=== PATIENT | male | born 1970 | race Caucasian/White ===

== ENCOUNTER 2025-07-06 20:54 | Observation (INO) ==
[2025-07-06] MEDS ORDERED: MoRPHine SULFATE 4 MG/ML 1 ML CARP\\VIAL IV PRN (21:20)
--- NOTE | 2025-07-06 21:32 | Emergency Department Note ---
History of Present Illness General Chief complaint: Kidney Stone Stated complaint: KIDNEY STONE Time Seen by Provider: 07/06/25 21:15 History of Present Illness Maximum Pain Intensity: 8 This is a 55-year-old male presenting to the emergency department for evaluation of left flank pain that began approximately 4 hours prior to arrival. The patient has had hematuria and 1 episode of vomiting. He states the pain is colicky. At worst the pain is 8/10. He has had kidney stones in the past and this feels similar. He has not had relief with [id number] medication. No fevers or chills. Home Medications Medication Instructions Recorded Confirmed Type No Known Home Medications 07/07/25 07/07/25 History Allergies Allergy/AdvReac Type Severity Reaction Status Date / Time No Known Allergies Allergy Unknown Verified 07/07/25 00:35 Past Med/Surg History Problem List (Updated 07/07/25 @ 02:27 by Delroy Cruz PA-C) Single pelvic kidney (Acute) Calculus of left ureter (Acute) No significant past surgical history Kidney stone (Acute) Social History Smoking Status: Never smoker Preferred Language: Pashto Feels Safe at Home: Yes Review of Systems A total of 10 systems reviewed and were otherwise negative Physical Exam Vital Signs Vital Signs - 24 hr 07/06/25 20:59 07/06/25 21:08 07/06/25 21:35 Temperature 36.6 C Temperature Source Temporal Artery Scan Pulse Rate 81 70 79 Pulse Rate from SpO2 Sensor Pulse Rhythm Regular Regular Pulse Strength Normal Respiratory Rate 18 16 Respiratory Effort / Characteristics Non-Labored Spontaneous Respiratory Depth Normal Respiratory Pattern Regular Blood Pressure 157/85 H Blood Pressure Mean 109 Blood Pressure Position Sitting Pulse Oximetry 98 95 Oxygen Delivery Method Room Air Room Air Sepsis Recent Fever Within 48 Hours No Sepsis New/Unexplained Change in Mental Status N/A Sepsis Action Taken by Nursing No Action Required 07/06/25 21:42 07/06/25 22:33 07/06/25 22:45 Temperature Temperature Source Pulse Rate 80 75 69 Pulse Rate from SpO2 Sensor 79 73 Pulse Rhythm Pulse Strength Respiratory Rate 20 22 17 Respiratory Effort / Characteristics Respiratory Depth Respiratory Pattern Blood Pressure 133/75 124/78 Blood Pressure Mean 94 93 Blood Pressure Position Pulse Oximetry 97 96 Oxygen Delivery Method Sepsis Recent Fever Within 48 Hours Sepsis New/Unexplained Change in Mental Status Sepsis Action Taken by Nursing 07/06/25 22:54 07/06/25 22:57 07/06/25 23:02 Temperature Temperature Source Pulse Rate 62 67 Pulse Rate from SpO2 Sensor 61 64 Pulse Rhythm Pulse Strength Respiratory Rate 17 17 Respiratory Effort / Characteristics Respiratory Depth Respiratory Pattern Blood Pressure 124/78 Blood Pressure Mean 94 Blood Pressure Position Pulse Oximetry 95 95 Oxygen Delivery Method Sepsis Recent Fever Within 48 Hours Sepsis New/Unexplained Change in Mental Status Sepsis Action Taken by Nursing 07/06/25 23:03 07/06/25 23:21 07/06/25 23:30 Temperature Temperature Source Pulse Rate 74 76 66 Pulse Rate from SpO2 Sensor 76 77 67 Pulse Rhythm Pulse Strength Respiratory Rate 27 H 17 18 Respiratory Effort / Characteristics Respiratory Depth Respiratory Pattern Blood Pressure Blood Pressure Mean Blood Pressure Position Pulse Oximetry 96 96 96 Oxygen Delivery Method Sepsis Recent Fever Within 48 Hours Sepsis New/Unexplained Change in Mental Status Sepsis Action Taken by Nursing 07/06/25 23:39 07/07/25 00:00 07/07/25 00:15 Temperature Temperature Source Pulse Rate 68 74 Pulse Rate from SpO2 Sensor 67 Pulse Rhythm Pulse Strength Respiratory Rate 19 14 Respiratory Effort / Characteristics Respiratory Depth Respiratory Pattern Blood Pressure 140/80 Blood Pressure Mean 97 Blood Pressure Position Pulse Oximetry 96 Oxygen Delivery Method Sepsis Recent Fever Within 48 Hours Sepsis New/Unexplained Change in Mental Status Sepsis Action Taken by Nursing 07/07/25 00:27 07/07/25 00:30 Temperature Temperature Source Pulse Rate 64 66 Pulse Rate from SpO2 Sensor Pulse Rhythm Pulse Strength Respiratory Rate 15 15 Respiratory Effort / Characteristics Respiratory Depth Respiratory Pattern Blood Pressure Blood Pressure Mean Blood Pressure Position Pulse Oximetry Oxygen Delivery Method Sepsis Recent Fever Within 48 Hours Sepsis New/Unexplained Change in Mental Status Sepsis Action Taken by Nursing VITALS: Vitals are noted on the nurse's note and reviewed by myself. Vital signs stable. GENERAL: Well-developed, well-nourished, white male, who is in no acute distress and resting comfortably. Patient is cooperative with the examination. HEAD: Normocephalic atraumatic. HEART: Regular rate and rhythm without murmurs gallops or rubs. LUNGS: Clear to auscultation bilaterally without wheezes, rales or rhonchi. No retractions or accessory muscle use. ABDOMEN: Positive normal bowel sounds x 4. Soft, nontender, without masses or organomegaly. No guarding or rebound tenderness. MUSCULOSKELETAL: No muscle atrophy, erythema, or edema noted. Full range of motion in all extremities. No tenderness to palpation. NEURO: Patient was alert and oriented to person place and time. CN II through XII grossly intact. No focal neurological deficits. GCS 15. SKIN: The skin was without rashes, erythema, edema, or bruising. Capillary refill less than 2 seconds. Course Administered Medications Sodium Chloride (Nss) 1,000 mls @ 100 mls/hr IV .Q10H ANGIE Stop: 07/07/25 20:59 Last Admin: 07/07/25 02:00 Dose: 100 mls/hr Documented By: JAVED Discontinued Medications Sodium Chloride (Nss) 1,000 mls @ 999 mls/hr IV .Q1H1M ONE Stop: 07/06/25 22:10 Last Infusion: 07/06/25 22:52 Dose: Infused Documented By: Admin: 07/06/25 21:38 Dose: 999 mls/hr Documented By: LUKE Ketorolac Tromethamine (Ketorolac Tromethamine 15 Mg/Ml Vial) 15 mg IV NOW STA Stop: 07/06/25 21:10 Last Admin: 07/06/25 21:38 Dose: 15 mg Documented By: LUKE Ondansetron HCl (Ondansetron Inj 2 Mg/Ml 2 Ml Vial) 4 mg IV NOW STA Stop: 07/06/25 21:11 Last Admin: 07/06/25 21:39 Dose: 4 mg Documented By: LUKE Medical Decision Making Differential Diagnosis Differential diagnosis: Etiologies such as shingles, pyelonephritis/UTI, renal colic, appendicitis, diverticulitis, mesenteric ischemia, torsion, aortic pathology, infections, inflammatory bowel disease, bowel obstruction, PUD, biliary pathology, as well as others were entertained. Laboratory Data 07/06/25 21:30 07/06/25 21:30 Lab Results 07/06/25 07/06/25 07/06/25 Range/Units 21:30 21:36 22:29 WBC 12.54 H (4.8-10.8) K/ul RBC 4.86 (4.70-6.10) M/uL Hgb 14.9 (14.0-18.0) g/dl POC Hgb 15.0 (14.0-18.0) g/dl Hct 42.5 (42.0-52.0) % POC Hct 44 (42-52) % MCV 87.4 (80.0-100.0) fL MCH 30.7 (25.0-34.0) pg MCHC 35.1 (32.0-36.0) g/dL RDW Std Deviation 39.2 (36.4-46.3) fL RDW Coeff of Olga 12.3 (11.5-14.5) % Plt Count 217 (130-400) K/uL MPV 9.5 (9.4-12.4) fL Immature Gran % (Auto) 0.5 % Neut % (Auto) 85.6 % Lymph % (Auto) 7.7 % [place] % (Auto) 5.4 % Eos % (Auto) 0.4 % Baso % (Auto) 0.4 % Neut # (Auto) 10.74 H (1.40-6.50) K/uL Lymph # (Auto) 0.96 L (1.20-3.40) K/uL [place] # (Auto) 0.68 H (0.11-0.59) K/uL Eos # (Auto) 0.05 (0.00-0.50) K/uL Baso # (Auto) 0.05 (0.00-0.20) K/uL Immature Gran # (Auto) 0.06 (0.01-0.20) K/uL POC Sodium 138 (135-144) mmol/L Sodium 136 (136-145) mmol/L POC Potassium 4.2 (3.3-5.0) mmol/L Potassium 4.1 (3.5-5.1) mmol/L POC Chloride 102 (101-112) mmol/L Chloride 102 (98-107) mmol/L Carbon Dioxide 27 (21-32) mmol/L POC Total CO2 24 (24-31) mmol/L Anion Gap 7 (3-11) POC Anion Gap 17.0 (16-25) mmol/L POC BUN 18 (7-18) mg/dl BUN 19 (6-23) mg/dl Creatinine 1.33 (0.6-1.4) mg/dl POC Creatinine 1.3 (0.6-1.3) mg/dl Est Cr Clr Drug Dosing 62.8 ml/min eGFR 63.12 BUN/Creatinine Ratio 14.3 (10-20) Glucose 187 H (70-99(Fasting)) mg/dl POC Glucose (other) 187 H (70-99) mg/dl Calcium 9.6 (8.6-10.3) mg/dl POC Ioniz Calcium Reny 1.24 (1.12-1.32) mmol/l Total Bilirubin 0.6 (0.2-1.0) mg/dl AST 16 (13-39) U/L ALT 19 (7-52) U/L Alkaline Phosphatase 55 (34-104) U/L Total Protein 7.5 (6.0-8.3) gm/dl Albumin 4.2 (3.4-5.0) gm/dl Globulin 3.3 (2.5-4.0) gm/dl Albumin/Globulin Ratio 1.3 (0.9-2) Lipase 27 (11-82) U/L Urine Color Yellow Urine Appearance Clear (Clear) Urine pH 6.0 (4.5-7.5) Ur Specific [place] 1.031 H (1.000-1.030) Urine Protein 1+ H (Negative) Urine Glucose (UA) Trace H (Negative) Urine Ketones Negative (Negative) Urine Blood 3+ H (Negative) Urine Nitrite Negative (Negative) Urine Bilirubin Negative (Negative) Urine Urobilinogen Negative (Negative) Ur Leukocyte Esterase 1+ H (Negative) Urine WBC (Auto) 11-20 H (0-5) /hpf Urine RBC (Auto) >20 H (0-2) /hpf U Hyaline Cast (Auto) 0-2 (0-2) /lpf U Epithel Cells (Auto) 0-2 (0-2) /hpf Urine Bacteria (Auto) None Seen (None Seen) Urine Comment Imaging Data Radiologist's Impression: Abdomen/Pelvis CT 07/06/25 21:11 Exam(s): CT ABDOMEN + PELVIS With Contrast IV Amt: 93 ml optiray 320 EXAM: CT Abdomen and Pelvis With Intravenous Contrast CLINICAL HISTORY: Reason for exam: left flank pain. TECHNIQUE: Axial computed tomography images of the abdomen and pelvis with intravenous contrast. CTDI is 18 mGy and DLP is 834 mGy-cm. Automated exposure control was utilized for the study. A dose lowering technique was utilized adhering to the principles of ALARA. CONTRAST: Patient received 93 ml optiray 320 of IV contrast COMPARISON: 04/11/2016 FINDINGS: Lung bases: No mass. No consolidation. No pleural effusion ABDOMEN: Liver: Scattered left hepatic lobe low-density lesions, statistically likely represent cysts. Hepatomegaly. No mass. Gallbladder and bile ducts: Unremarkable. No calcified stones. No ductal dilation. Pancreas: Unremarkable. No mass. No ductal dilation. Spleen: Unremarkable. No splenomegaly. Adrenals: Unremarkable. No mass. Kidneys and ureters: The left kidney is again seen within the left hemipelvis, demonstrating a 1.7 cm obstructing calculus at the left UPJ with resultant moderately severe left hydronephrosis and perinephric inflammatory fat stranding/edema fluid.. A 1.6 cm right renal cortical cyst. Few tiny right renal calculi are seen. No right hydronephrosis. Stomach and bowel: Unremarkable stomach and small bowel. Nonspecific mild circumferential wall thickening of the distal descending colon/hepatic flexure, this could be related to incomplete distention although cannot exclude colitis (series 300 image 51). No obstruction. No mucosal thickening. PELVIS: Appendix: Normal-appearing appendix. Bladder: Rightward mildly displaced moderately distended urinary bladder.. No mass. Reproductive: Borderline/mildly large prostate gland. ABDOMEN and PELVIS: Intraperitoneal space: No free air. No significant fluid collection. Bones/joints: No acute fracture. No dislocation. At L4-L5 level mild/moderate degenerative disc disease changes seen. Soft tissues: Unremarkable. Vasculature: Mild atheromatous calcification. No abdominal aortic aneurysm. Lymph nodes: No significantly enlarged lymph nodes. IMPRESSION: A left pelvic kidney is seen with a 1.7 cm obstructing calculus at the UPJ, resulting in moderately severe left hydronephrosis and perinephric inflammatory fat stranding/edema fluid. A 1.6 cm right renal cortical cyst. Few tiny right renal calculi are seen. No right hydronephrosis. Nonspecific mild circumferential wall thickening of the distal descending colon/hepatic flexure, could be related to incomplete distention although cannot exclude colitis. Clinical correlation recommended. . Electronically signed by: Shawn Rose MD, CARLIE 07/06/25 23:52 PM MDM Narrative Physical exam and history were performed. Nursing notes, EMR, and Medication List were personally reviewed. No social concerns were identified as barriers to patients care. History was provided by the Patient. Patient appears to have flank pain bringing him to the ER. He does have a history of kidney stones. IV access was established and labs were obtained. He was hydrated normal saline given IV Toradol, IV Zofran, and IV morphine. Patient was sent to CT scan for imaging of his abdomen and pelvis. Patient's blood work is as above and was reviewed. He does not have a significant elevated white blood cell count, gross anemia, bandemia, or significant electrolyte imbalance. Transaminases are not diagnostic. Urine without distinct evidence of infection. CT scan was performed and independently reviewed by myself and radiology. He does seem to have a left pelvic kidney, which does have a quite sizable ureteral calculi. This seems to measure 1.7 cm and is causing obstructive findings. Escalation of care was considered, and felt to be necessary. Case was discussed with both my attending physician, as well as on-call urology. Patient was additionally discussed with the on-call [facility] team, who will evaluate the patient here in the ER. Please see their dictation for further patient course, plan, disposition. The chart was completed utilizing [employer] Speech Voice Recognition Software. Grammatical errors, random word insertions, pronoun errors, and incomplete sentences are an occasional consequence of this system due to software limitations, ambient noise, and hardware issues. Any formal questions or concerns about the content, text, or information contained within the body of this dictation should be directly addressed to the provider for clarification. Impression & Plan Calculus of left ureter, Single pelvic kidney Discharge Plan Visit Data Chief Complaint: Kidney Stone Stated Complaint: KIDNEY STONE ED Provider: Cheikh Hector ED Midlevel Provider: Delroy Cruz Discharge Problem: Calculus of left ureter, Single pelvic kidney Patient Disposition: Admitted As Inpatient Condition: Fair Discharge Instructions Interventions: ED Discharge Assessment Last Done: 07/07/25 01:43
[2025-07-06] MEDS: SODIUM CHLORIDE 0.9% 1,000 ML IV ONE (21:38)
[2025-07-06] MEDS: KETOROLAC TROMETHAMINE 15 MG/ML VIAL IV STA (21:38)
[2025-07-06] MEDS: ONDANSETRON INJ 2 MG/ML 2 ML VIAL IV STA (21:39)
[2025-07-06 21:46] LABS: Hematocrit (blood only) 42.5 % (42.0-52.0); Hemoglobin 14.9 g/dl (14.0-18.0); Immature Granulocytes # (auto) 0.06 K/uL (0.01-0.20); Immature Granulocytes % (auto) 0.5 %; Mean Corpuscular Hemoglobin 30.7 pg (25.0-34.0); Mean Corpuscular Volume 87.4 fL (80.0-100.0); Platelet Count 217 K/uL (130-400); RDW Standard Deviation 39.2 fL (36.4-46.3); Red Blood Count 4.86 M/uL (4.70-6.10); White Blood Count 12.54 K/ul (4.8-10.8)
[2025-07-06 22:00] LABS: Alanine Aminotransferase 19.0 U/L (7-52); Albumin Globulin Ratio 1.3 (0.9-2); Alkaline Phosphatase 55.0 U/L (34-104); Anion Gap 7.0 (3-11); Bilirubin,Total 0.6 mg/dl (0.2-1.0); Blood Urea Nitrogen 19.0 mg/dl (6-23); Calcium 9.6 mg/dl (8.6-10.3); Carbon Dioxide 27.0 mmol/L (21-32); Chloride 102.0 mmol/L (98-107); Creatinine Clr Calc Pharmacy 62.8 ml/min; Globulin 3.3 gm/dl (2.5-4.0); Glucose 187.0 mg/dl (70-99(Fasting)); Lipase 27.0 U/L (11-82); Potassium 4.1 mmol/L (3.5-5.1); Sodium 136.0 mmol/L (136-145); Total Protein 7.5 gm/dl (6.0-8.3)
[2025-07-06 22:50] LABS: Appearance Urine Clear (Clear); Bacteria Urine Automated None Seen (None Seen); Cast Urine Automated 0-2 /lpf (0-2); Epithelial Cell Urine Auto 0-2 /hpf (0-2); Glucose Urine UA Trace (Negative); RBC Urine Automated >20 /hpf (0-2)
--- NOTE | 2025-07-06 23:53 | CT Scan Report ---
Exam(s): CT ABDOMEN + PELVIS With Contrast IV Amt: 93 ml optiray 320 EXAM: CT Abdomen and Pelvis With Intravenous Contrast CLINICAL HISTORY: Reason for exam: left flank pain. TECHNIQUE: Axial computed tomography images of the abdomen and pelvis with intravenous contrast. CTDI is 18 mGy and DLP is 834 mGy-cm. Automated exposure control was utilized for the study. A dose lowering technique was utilized adhering to the principles of ALARA. CONTRAST: Patient received 93 ml optiray 320 of IV contrast COMPARISON: 04/11/2016 FINDINGS: Lung bases: No mass. No consolidation. No pleural effusion ABDOMEN: Liver: Scattered left hepatic lobe low-density lesions, statistically likely represent cysts. Hepatomegaly. No mass. Gallbladder and bile ducts: Unremarkable. No calcified stones. No ductal dilation. Pancreas: Unremarkable. No mass. No ductal dilation. Spleen: Unremarkable. No splenomegaly. Adrenals: Unremarkable. No mass. Kidneys and ureters: The left kidney is again seen within the left hemipelvis, demonstrating a 1.7 cm obstructing calculus at the left UPJ with resultant moderately severe left hydronephrosis and perinephric inflammatory fat stranding/edema fluid.. A 1.6 cm right renal cortical cyst. Few tiny right renal calculi are seen. No right hydronephrosis. Stomach and bowel: Unremarkable stomach and small bowel. Nonspecific mild circumferential wall thickening of the distal descending colon/hepatic flexure, this could be related to incomplete distention although cannot exclude colitis (series 300 image 51). No obstruction. No mucosal thickening. PELVIS: Appendix: Normal-appearing appendix. Bladder: Rightward mildly displaced moderately distended urinary bladder.. No mass. Reproductive: Borderline/mildly large prostate gland. ABDOMEN and PELVIS: Intraperitoneal space: No free air. No significant fluid collection. Bones/joints: No acute fracture. No dislocation. At L4-L5 level mild/moderate degenerative disc disease changes seen. Soft tissues: Unremarkable. Vasculature: Mild atheromatous calcification. No abdominal aortic aneurysm. Lymph nodes: No significantly enlarged lymph nodes. IMPRESSION: A left pelvic kidney is seen with a 1.7 cm obstructing calculus at the UPJ, resulting in moderately severe left hydronephrosis and perinephric inflammatory fat stranding/edema fluid. A 1.6 cm right renal cortical cyst. Few tiny right renal calculi are seen. No right hydronephrosis. Nonspecific mild circumferential wall thickening of the distal descending colon/hepatic flexure, could be related to incomplete distention although cannot exclude colitis. Clinical correlation recommended. . Electronically signed by: Shawn Rose MD, CARLIE 07/06/25 23:52 PM
--- NOTE | 2025-07-07 00:18 | Urology Consultation ---
Date of Consultation July 07, 2025 Assessment & Plan (1) Kidney stone: I discussed with the treating clinician emergency department the patient is being admitted on the hospitalist service. From a urologic perspective we recommend the following: Provide analgesics only provide antiemetics Provide IV fluid for hydration Implement n.p.o. status I discussed with the patient that with the size of his kidney stone it would likely not pass on its own and he may require surgical or cystoscopic i ntervention. We therefore keep the patient n.p.o. and he will be reevaluated by her dayshift team on 07/07/2025 and a determination will be made about the best course of action At the time my interview the patient was noted to be nontoxic-appearingas she was normotensive without tachycardia or fever and did not exhibit acute kidney injury Additional recommendations are forthcoming based on his clinical course as it unfolds History of Present Illness Reason for Consultation: Nephrolithiasis History of Present Illness This is a 55-year-old male who presented to the emergency department secondary to left-sided flank/left-sided abdominal pain. Patient states that the pain began the evening of 07/06/2025. He denies any dysuria but did have an episode of hematuria as well. He had 1 episode of nausea and vomiting with the pain. He denies any fevers, shakes, or chills. He notes that he has had kidney stones in the past but he has been able to pass a kidney stone on his own. Since arrival to the hospital patient has had labs and imaging which independent reviewed. CT scan abdomen pelvis showed the patient was noted to have a left kidney located primarily in the left hemipelvis. He was noted to have a 1.7 cm obstructing kidney stone at the left ureteropelvic junction resulting in severe left hydronephrosis. Nephricinflammatory/fat stranding. Labs included CBC white blood cell count was elevated 12.5. Hemoglobin and hematocrit as well as a platelet count were normal. Chemistry profile showed sodium and potassium as well as the BUN and creatinine were normal. The urinalysis was negative for nitrites but he did have 1+ leukocyte esterase and 11-20 white blood cells per high-power field. There is no bacteria in the study. At the time of my interview he was resting comfortably in bed and is in no distress. Allergies Allergy/AdvReac Type Severity Reaction Status Date / Time No Known Allergies Allergy Unknown Unverified 05/05/16 07:54 Home Medications Medication Instructions Recorded Confirmed Type OMEPRAZOLE (PRILOSEC) 20 mg PO DAILY ##0 02/15/13 History Patient History Social History Smoking Status: Never smoker Preferred Language: Bhutanese Feels Safe at Home: Yes Review of Systems Review of Systems: All systems reviewed & are unremarkable except as noted in HPI & below Physical Exam Constitutional: WD/WN, vitals as above Eyes: no conjunctival abnormality ENMT: Ears: no hearing impairment and no external ear abnormality Mouth: no oropharynx abnormality Neck: trachea midline Respiratory: normal respiratory effort; no respiratory distress and no labored breathing Cardiovascular: Rate/Rhythm: regular rate and regular rhythm Gastrointestinal (Abdomen): Soft and nontender to palpation Musculoskeletal: No calf tenderness Skin: no rashes Neurologic: moves all extremities Psychiatric: A+Ox3, euthymic affect Genitourinary: No CVA tenderness with percussion bilaterally at the time of my exam Results & Data Vital Signs (Past 12 Hours) Vital Signs Temp Pulse Resp BP Pulse Ox O2 Del Method 07/06/25 22:54 62 17 95 07/06/25 22:45 69 17 07/06/25 22:33 75 22 124/78 96 07/06/25 21:42 80 20 133/75 97 07/06/25 21:35 79 07/06/25 21:08 70 16 95 Room Air 07/06/25 20:59 36.6 C 81 18 157/85 H 98 Room Air PG Care Time/CCT Total # of Minutes Spent Total Time Spent with Patient: Total time spent is greater than 50% in coordination of care (as documented) at patient's floor/unit and/or counseling patient: Coding Level of Care Code 62203 IN/OBS CONSULT LVL 5,80M Diagnoses Kidney stone N20.0
--- NOTE | 2025-07-07 00:53 | History & Physical Report ---
Date of Service July 07, 2025 Assessment & Plan (1) Calculus of left ureter: Plan: Assessment and plan below following discussion of case with ED provider and reviewing patient history/pertinent normal/abnormal diagnostic test results. Obstructive uropathy secondary to kidney stone No sepsis for now Incidental finding of right kidney cyst on imaging Hyperglycemia rule out DM Admit to MedSurg Analgesia Strain urine Urology consult RE obstructive uropathy from kidney stone (Patient already evaluated in the ER by provider. N.p.o. status recommended in anticipation of procedure in a.m.) Check hemoglobin A1c DVT prophylaxis. SCDs Re: Gross hematuria Full code Text document was generated using [employer] voice recognition software. It may contain grammatical or spelling errors. Kindly contact undersigned for clarification of any documentation item in question. History of Present Illness Chief Complaint: Kidney stone pain Primary Care Provider: NO PCP History obtained from patient and records. Medical history significant for urolithiasis. Patient experienced achy left-sided flank pain symptoms last night reminiscent of kidney stone attack. Hematuria associated with emesis. Denies chest pain, SOB, fever or chills. 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 Allergies Allergy/AdvReac Type Severity Reaction Status Date / Time No Known Allergies Allergy Unknown Verified 07/07/25 00:35 Home Medications Medication Instructions Recorded Confirmed Type No Known Home Medications 07/07/25 07/07/25 History Past Med/Surg History Problem List (Updated 07/07/25 @ 02:27 by Delroy Cruz PA-C) Single pelvic kidney (Acute) Calculus of left ureter (Acute) No significant past surgical history Kidney stone (Acute) Social History Smoking Status: Never smoker Second Hand Exposure: No; Do You Dip or Chew Tobacco: No; Tobacco Cessation Education Requested by Patient: No Hx Alcohol Use: Yes Alcohol type: beer, wine and hard liquor Hx Substance Use: No Preferred Language: Welsh Communication Ability: Effective Ampoule Examiner Required: No Beliefs That Will Affect Care: None Current Living Situation: Alone Other Information That Helps Us Care for You: No Feels Safe at Home: Yes Safety Concerns: Feels Safe At This Time Assistive Devices: None Review of Systems Review of Systems: As per HPI, all other systems reviewed and negative Physical Exam Physical Exam: GENERAL: Comfortable, pleasant, no respiratory distress SKIN: Normal color, warm HEENT: [place] palpebral conjunctivae, no ptosis, moist buccal mucosa NECK : Supple, no tenderness CHEST : CTA, no tenderness HEART : RRR, no obvious murmurs ABDOMEN:no distention, minimal left leg tenderness EXTREMITIES : No LE swelling/tenderness, palpable pulses, no other conspicuous deformities noted NEUROLOGIC : Coherent, no facial asymmetry, no other gross focality Results & Data Results & Data Vital Signs (Past 12 Hours) Vital Signs Temp Pulse Resp BP Pulse Ox O2 Del Method 07/06/25 22:54 62 17 95 07/06/25 22:45 69 17 07/06/25 22:33 75 22 124/78 96 07/06/25 21:42 80 20 133/75 97 07/06/25 21:35 79 07/06/25 21:08 70 16 95 Room Air 07/06/25 20:59 36.6 C 81 18 157/85 H 98 Room Air Laboratory Results Laboratory Results WBC 12.54 K/ul (4.8-10.8) H 07/06/25 21:30 RBC 4.86 M/uL (4.70-6.10) 07/06/25 21:30 Hgb 14.9 g/dl (14.0-18.0) 07/06/25 21:30 POC Hgb 15.0 g/dl (14.0-18.0) 07/06/25 21:36 Hct 42.5 % (42.0-52.0) 07/06/25 21: POC Hct 44 % (42-52) 07/06/25 21:36 MCV 87.4 fL (80.0-100.0) 07/06/25 21:30 MCH 30.7 pg (25.0-34.0) 07/06/25 21: MCHC 35.1 g/dL (32.0-36.0) 07/06/25 21: RDW Std Deviation 39.2 fL (36.4-46.3) 07/06/25 21: RDW Coeff of Olga 12.3 % (11.5-14.5) 07/06/25 21: Plt Count 217 K/uL (130-400) 07/06/25 21:30 MPV 9.5 fL (9.4-12.4) 07/06/25 21:30 Immature Gran % (Auto) 0.5 % 07/06/25 21:30 Neut % (Auto) 85.6 % 07/06/25 21:30 Lymph % (Auto) 7.7 % 07/06/25 21:30 [place] % (Auto) 5.4 % 07/06/25 21:30 Eos % (Auto) 0.4 % 07/06/25 21:30 Baso % (Auto) 0.4 % 07/06/25 21:30 Neut # (Auto) 10.74 K/uL (1.40-6.50) H 07/06/25 21: Lymph # (Auto) 0.96 K/uL (1.20-3.40) L 07/06/25 21:30 Stanton # (Auto) 0.68 K/uL (0.11-0.59) H 07/06/25 21:30 Eos # (Auto) 0.05 K/uL (0.00-0.50) 07/06/25 21:30 Baso # (Auto) 0.05 K/uL (0.00-0.20) 07/06/25 21: Immature Gran # (Auto) 0.06 K/uL (0.01-0.20) 07/06/25 21:30 POC Sodium 138 mmol/L (135-144) 07/06/25 21: Sodium 136 mmol/L (136-145) 07/06/25 21:30 POC Potassium 4.2 mmol/L (3.3-5.0) 07/06/25 21: Potassium 4.1 mmol/L (3.5-5.1) 07/06/25 21:30 POC Chloride 102 mmol/L (101-112) 07/06/25 21: Chloride 102 mmol/L (98-107) 07/06/25 21: Carbon Dioxide 27 mmol/L (21-32) 07/06/25 21:30 POC Total CO2 24 mmol/L (24-31) 07/06/25 21: Anion Gap 7 (3-11) 07/06/25 21:30 POC Anion Gap 17.0 mmol/L (16-25) 07/06/25 21:36 POC BUN 18 mg/dl (7-18) 07/06/25 21:36 BUN 19 mg/dl (6-23) 07/06/25: Creatinine 1.33 mg/dl (0.6-1.4) 07/06/25 21: POC Creatinine 1.3 mg/dl (0.6-1.3) 07/06/25 21: Est Cr Clr Drug Dosing 62.8 ml/min 07/06/25 21: eGFR 63.12 07/06/25 21: BUN/Creatinine Ratio 14.3 (10-20) 07/06/25 21: Glucose 187 mg/dl (70-99(Fasting)) H 07/06/25: POC Glucose (other) 187 mg/dl (70-99) H 07/06/25: Calcium 9.6 mg/dl (8.6-10.3) 07/06/25: POC Ioniz Calcium Reny 1.24 mmol/l (1.12-1.32) 07/06/25: Total Bilirubin 0.6 mg/dl (0.2-1.0) 07/06/25 21: AST 16 U/L (13-39) 07/06/25: ALT 19 U/L (7-52) 07/06/25: Alkaline Phosphatase 55 U/L (34-104) 07/06/25: Total Protein 7.5 gm/dl (6.0-8.3) 07/06/25: Albumin 4.2 gm/dl (3.4-5.0) 07/06/25: Globulin 3.3 gm/dl (2.5-4.0) 07/06/25: Albumin/Globulin Ratio 1.3 (0.9-2) 07/06/25: Lipase 27 U/L (11-82) 07/06/25 21: Urine Color Yellow 07/06/25 22: Urine Appearance Clear (Clear) 07/06/25 22: Urine pH 6.0 (4.5-7.5) 07/06/25 22: Ur Specific [place] 1.031 (1.000-1.030) H 07/06/25: Urine Protein 1+ (Negative) H 07/06/25: Urine Glucose (UA) Trace (Negative) H 07/06/25: Urine Ketones Negative (Negative) 07/06/25: Urine Blood 3+ (Negative) H 07/06/25: Urine Nitrite Negative (Negative) 07/06/25: Urine Bilirubin Negative (Negative) 07/06/25: Urine Urobilinogen Negative (Negative) 07/06/25: Ur Leukocyte Esterase 1+ (Negative) H 07/06/25: Urine WBC (Auto) 11-20 /hpf (0-5) H 07/06/25: Urine RBC (Auto) >20 /hpf (0-2) H 07/06/25: U Hyaline Cast (Auto) 0-2 /lpf (0-2) 07/06/25: U Epithel Cells (Auto) 0-2 /hpf (0-2) 07/06/25: Urine Bacteria (Auto) None Seen (None Seen) 07/06/25: Urine Comment 07/06/25: Impressions Abdomen/Pelvis CT 07/06/25 21:11 Exam(s): CT ABDOMEN + PELVIS With Contrast IV Amt: 93 ml optiray 320 EXAM: CT Abdomen and Pelvis With Intravenous Contrast CLINICAL HISTORY: Reason for exam: left flank pain. TECHNIQUE: Axial computed tomography images of the abdomen and pelvis with intravenous contrast. CTDI is 18 mGy and DLP is 834 mGy-cm. Automated exposure control was utilized for the study. A dose lowering technique was utilized adhering to the principles of ALARA. CONTRAST: Patient received 93 ml optiray 320 of IV contrast COMPARISON: 04/11/2016 FINDINGS: Lung bases: No mass. No consolidation. No pleural effusion ABDOMEN: Liver: Scattered left hepatic lobe low-density lesions, statistically likely represent cysts. Hepatomegaly. No mass. Gallbladder and bile ducts: Unremarkable. No calcified stones. No ductal dilation. Pancreas: Unremarkable. No mass. No ductal dilation. Spleen: Unremarkable. No splenomegaly. Adrenals: Unremarkable. No mass. Kidneys and ureters: The left kidney is again seen within the left hemipelvis, demonstrating a 1.7 cm obstructing calculus at the left UPJ with resultant moderately severe left hydronephrosis and perinephric inflammatory fat stranding/edema fluid.. A 1.6 cm right renal cortical cyst. Few tiny right renal calculi are seen. No right hydronephrosis. Stomach and bowel: Unremarkable stomach and small bowel. Nonspecific mild circumferential wall thickening of the distal descending colon/hepatic flexure, this could be related to incomplete distention although cannot exclude colitis (series 300 image 51). No obstruction. No mucosal thickening. PELVIS: Appendix: Normal-appearing appendix. Bladder: Rightward mildly displaced moderately distended urinary bladder.. No mass. Reproductive: Borderline/mildly large prostate gland. ABDOMEN and PELVIS: Intraperitoneal space: No free air. No significant fluid collection. Bones/joints: No acute fracture. No dislocation. At L4-L5 level mild/moderate degenerative disc disease changes seen. Soft tissues: Unremarkable. Vasculature: Mild atheromatous calcification. No abdominal aortic aneurysm. Lymph nodes: No significantly enlarged lymph nodes. IMPRESSION: A left pelvic kidney is seen with a 1.7 cm obstructing calculus at the UPJ, resulting in moderately severe left hydronephrosis and perinephric inflammatory fat stranding/edema fluid. A 1.6 cm right renal cortical cyst. Few tiny right renal calculi are seen. No right hydronephrosis. Nonspecific mild circumferential wall thickening of the distal descending colon/hepatic flexure, could be related to incomplete distention although cannot exclude colitis. Clinical correlation recommended. . Electronically signed by: Shawn Rose MD, CARLIE 07/06/25 23:52 PM
[2025-07-07] MEDS ORDERED: MoRPHine SULFATE 4 MG/ML 1 ML CARP\\VIAL IV PRN (00:55)
[2025-07-07] MEDS ORDERED: PROMETHAZINE 6.25 MG/50.25 ML BAG IV PRN (00:55)
[2025-07-07] MEDS ORDERED: LORazepam 0.5 MG TAB PO PRN (00:55)
[2025-07-07] MEDS: SODIUM CHLORIDE 0.9% 1,000 ML IV SCH (02:00)
[2025-07-07 06:19] LABS: Hematocrit (blood only) 38.3 % (42.0-52.0); Hemoglobin 13.5 g/dl (14.0-18.0); Immature Granulocytes # (auto) 0.02 K/uL (0.01-0.20); Immature Granulocytes % (auto) 0.2 %; Mean Corpuscular Hemoglobin 31.3 pg (25.0-34.0); Mean Corpuscular Volume 88.9 fL (80.0-100.0); Platelet Count 205 K/uL (130-400); RDW Standard Deviation 39.1 fL (36.4-46.3); Red Blood Count 4.31 M/uL (4.70-6.10); White Blood Count 8.75 K/ul (4.8-10.8)
[2025-07-07 06:45] LABS: Anion Gap 3.0 (3-11); Blood Urea Nitrogen 15.0 mg/dl (6-23); Calcium 8.7 mg/dl (8.6-10.3); Carbon Dioxide 29.0 mmol/L (21-32); Chloride 108.0 mmol/L (98-107); Creatinine Clr Calc Pharmacy 79.5 ml/min; Glucose 92.0 mg/dl (70-99(Fasting)); Potassium 4.2 mmol/L (3.5-5.1); Sodium 140.0 mmol/L (136-145)
[2025-07-07 07:01] LABS: Thyroid Stimulating Hormone 3.515 uIu/ml (0.300-4.500)
--- NOTE | 2025-07-07 07:49 | Urology Progress Note ---
Date of Service July 07, 2025 Assessment & Plan (1) Calculus of left ureter: Plan: Vital signs stable, afebrile. wbc 8.75, Cr 1.05 Ct scan reviewed with Dr. Lance. He does have a pelvic kidney. He also has a renal cyst and smaller stones in the right kidney. Discussed treatment including cystoscopy, left ureteral stent placement. I did explain to him that he will need additional procedure for stone treatment as well. NPO. Will plan for cystoscopy today. (2) Hydronephrosis: Admission and Anticipated Discharge Date Admission Date: July 07, 2025 Subjective 55 year old patient admitted yesterday with left UPJ stone 1.7cm with mod-severe hydronephrosis. Pain improved at this time, compared to yesterday. He did get some oxycodone. No vomiting overnight. He has been able to urinate. Physical Exam Constitutional: well developed and well nourished; no acute distress Respiratory: normal respiratory effort Psychiatric: A+Ox3, euthymic affect Results & Data Vital Signs (Past 12 Hours) Vital Signs Temp Pulse Pulse Resp BP BP Pulse Ox 07/07/25 07:19 36.5 C 58 L 16 117/69 96 07/07/25 02:00 36.5 C 57 L 16 125/87 97 07/07/25 01:43 07/07/25 01:34 64 07/07/25 01:33 52 L 10 L 07/07/25 01:27 56 L 17 07/07/25 01:12 67 19 07/07/25 01:00 71 24 07/07/25 00:57 64 15 07/07/25 00:30 66 15 07/07/25 00:27 64 15 07/07/25 00:15 74 14 07/07/25 00:00 140/80 07/06/25 23:39 68 19 96 07/06/25 23:30 66 18 96 07/06/25 23:21 76 17 96 07/06/25 23:03 74 27 H 96 07/06/25 23:02 124/78 07/06/25 22:57 67 17 95 07/06/25 22:54 62 17 95 07/06/25 22:45 69 17 07/06/25 22:33 75 22 124/78 96 07/06/25 21:42 80 20 133/75 97 07/06/25 21:35 79 07/06/25 21:08 70 16 95 07/06/25 20:59 36.6 C 81 18 157/85 H 98 O2 Del Method 07/07/25 07:19 Room Air 07/07/25 02:00 Room Air 07/07/25 01:43 Room Air 07/07/25 01:34 07/07/25 01:33 07/07/25 01:27 07/07/25 01:12 07/07/25 01:00 07/07/25 00:57 07/07/25 00:30 07/07/25 00:27 07/07/25 00:15 07/07/25 00:00 07/06/25 23:39 07/06/25 23:30 07/06/25 23:21 07/06/25 23:03 07/06/25 23:02 07/06/25 22:57 07/06/25 22:54 07/06/25 22:45 07/06/25 22:33 07/06/25 21:42 07/06/25 21:35 07/06/25 21:08 Room Air 07/06/25 20:59 Room Air PG Care Time/CCT Total # of Minutes Spent Total Time Spent with Patient: Total time spent is greater than 50% in coordination of care (as documented) at patient's floor/unit and/or counseling patient: Coding Level of Care Code 79226 SUB INP/OBS CARE 2/35MIN Diagnoses Calculus of left ureter N20.1 Hydronephrosis N13.30
[2025-07-07 07:55] LABS: Hemoglobin A1C 5.4 % (4.5-5.6)
[2025-07-07] MEDS: ACETAMINOPHEN 325 MG TAB PO PRN (11:30)
--- NOTE | 2025-07-07 12:05 | Communication Note ---
Date of Service: July 07, 2025 Patient was seen and examined at bedside. 55-year-old male with PMH of urolithiasis presents to the ED 07/06 with complaint of acute left-sided flank pain that started prior to arrival reminiscent of prior kidney stone attack. Patient reported hematuria and associated emesis. Patient denied pain or burning while passing urine. Patient also denied fever or chills in the last 1 week. No costovertebral angle tenderness on exam. He is being managed for the following: Left ureteral calculus Severe Left-sided hydronephrosis Obstructive uropathy Hematuria Patient presents with left-sided pain, UA equivocal, follow urine culture. Patient denies any UTI symptoms clinically. See above. Admitting CTAP: 1.7 cm obstructing calculus at the Left UPJ and associated severe left hydronephrosis. 1.6 cm right renal cortical cyst. Patient made aware of cortical cyst and advised to follow-up with PCP/urology for long-term monitoring. WBC elevated at presentation, trended down without use of antibiotic, continue to monitor off antibiotic. Patient made aware to report immediately to his health care providers if he has any fever/chills/pain or burning with passing/increased frequency of urination as he might need antibiotic coverage. Urology on board, plan for cystoscopy and stent placement today. f/u w/ uro on dc. Hyperglycemia: Noted at presentation, A1c of 5.4, diabetes ruled out. LLE radiculopathy: Patient reports low back pain and radiating pain to left lower extremity, denies the need for any pain management and has been carrying on his day-to-day activities with not much issue but he does have pain in his left lower extremity. Will get lumbar spine x-ray while in hospital, patient advised to utilize over the last Tylenol and lidocaine patch 4% per plastering supervisor's recommendation to help with pain management and also he was adv ised to follow-up with outpatient physical therapy for low back pain. Also he was advised to continue to follow-up with PCP for long-term monitoring/Management of his low back pain/radicular pain. Full code DVT prophylaxis: SCDs re: hematuria Dispo: DC w/ clearance from Urology. For detailed information on the patient, report to today's H&P note.
--- NOTE | 2025-07-07 13:37 | XRay Report ---
LUMBAR SPINE 3 VIEWS CLINICAL HISTORY: Low back pain. FINDINGS: 3 views of the lumbar spine are correlated with abdominal CT dated 07/06/2025. The skeletal structures are well mineralized. There is no radiographic evidence of fracture or malalignment. Vert ebral body height and alignment are maintained. Tiny anterior osteophytes are seen throughout. The tr ansverse and spinous processes are intact. The intervertebral disc spaces are maintained. The visuali zed bony pelvis appears intact. There is a nonobstructed abdominal bowel gas pattern. Excreted IV con trast fills the bladder. A 13 mm ovoid calcification ejected over the upper pelvis corresponds to a n onobstructing ureteral stone. IMPRESSION: 1. No acute bony abnormality is seen involving the lumbar spine. 2. A 13 mm calcification projecting over the central pelvis corresponds to the patients known obstruc ting ureteral stone. ACT 112: Negative or not required by law. Electronically signed by: Heron Galo M.D. 07/07/2025 1:36 PM
[2025-07-07] MEDS ORDERED: ONDANSETRON INJ 2 MG/ML 2 ML VIAL ONE (16:01)
[2025-07-07] MEDS ORDERED: PROPOFOL IV EMULSION 10 MG/ML 20 ML VIAL IV ONE (16:01)
[2025-07-07] MEDS ORDERED: MIDAZOLAM HCL 1 MG/ML 2ML VIAL ONE (16:01)
[2025-07-07] MEDS ORDERED: DEXAMETHASONE SOD INJ 4 MG/ML VIAL ONE (16:01)
[2025-07-07] MEDS ORDERED: LIDOCAINE 2% 2 ML VIAL/AMP(20MG/ML) INFIL ONE (16:01)
--- NOTE | 2025-07-07 16:03 | Anesthesiology Consultation ---
Date of Service July 07, 2025 Assessment & Plan Chart Review Chart Review: Acceptable Risk for Surgery and Patient NOT seen in Pre Admission Testing Consults Requested none History Surgery Operation Date: 07/07/25 08:20 Proposed Procedures p Cystoscopy, Left Ureteral Stent Placement - Brett Lance MD Height/Weight Height: 5 ft 9 in Weight: 78.9 kg Allergies Allergy/AdvReac Type Severity Reaction Status Date / Time No Known Allergies Allergy Unknown Verified 07/07/25 00:35 Medications Home Medications Medication Instructions Recorded Confirmed Last Taken No Known Home Medications 07/07/25 07/07/25 Unknown Active Medications Generic Name Dose Route Start Last Admin Trade Name Freq PRN Reason Stop Dose Admin Acetaminophen 650 mg 07/07/25 00:55 07/07/25 11:30 Acetaminophen 325 Mg Tab PO 08/06/25 00:54 650 mg QID PRN Administration pain/fever Sodium Chloride 1,000 mls @ 100 mls/hr 07/07/25 01:00 07/07/25 11:45 Nss IV 07/07/25 20:59 100 mls/hr .Q10H ANGIE Administration Oxycodone HCl 5 - 10 mg 07/07/25 00:55 07/07/25 03:18 Oxycodone Hcl Ir 5 Mg Tab (Immediate Release) PO 07/21/25 00:54 10 mg QID PRN Administration Pain Social History Smoking Status: Never smoker Do You Dip or Chew Tobacco: No Hx Alcohol Use: Yes Alcohol type: beer, wine and hard liquor alcohol intake frequency: a few times a month Hx Substance Use: No substance use type: does not use Physical Exam Vital Signs Last Vital Signs Temp 36.5 C 07/07/25 07:19 Pulse 58 L 07/07/25 07:19 Resp 16 07/07/25 07:19 BP 117/69 07/07/25 07:19 Pulse Ox 96 07/07/25 07:19 O2 Del Method Room Air 07/07/25 07:19 Testing Laboratory Results 07/07/25 05:40 07/07/25 05:40 Hemoglobin A1c 5.4 % (4.5-5.6) 07/07/25 05:40 Urine Color Yellow 07/06/25 22:29 Urine Appearance Clear (Clear) 07/06/25 22:29 Urine pH 6.0 (4.5-7.5) 07/06/25 22: Ur Specific [place] 1.031 (1.000-1.030) H 07/06/25: Urine Protein 1+ (Negative) H 07/06/25: Urine Glucose (UA) Trace (Negative) H 07/06/25: Urine Ketones Negative (Negative) 07/06/25: Urine Nitrite Negative (Negative) 07/06/25: Ur Leukocyte Esterase 1+ (Negative) H 07/06/25: Urine WBC (Auto) 11-20 /hpf (0-5) H 07/06/25: Urine RBC (Auto) >20 /hpf (0-2) H 07/06/25: U Hyaline Cast (Auto) 0-2 /lpf (0-2) 07/06/25: U Epithel Cells (Auto) 0-2 /hpf (0-2) 07/06/25: Urine Bacteria (Auto) None Seen (None Seen) 07/06/25:29
[2025-07-07] MEDS ORDERED: ATROPINE SULFATE 0.1 MG/ML 10ML SYR IV PRN (16:04)
[2025-07-07] MEDS ORDERED: ONDANSETRON INJ 2 MG/ML 2 ML VIAL IV PRN (16:04)
[2025-07-07] MEDS ORDERED: KETAMINE HCL 10MG/ML SYR ONE (16:09)
[2025-07-07] MEDS: CIPROFLOXACIN 400MG / 200ML D5W IV ONE (16:24)
--- NOTE | 2025-07-07 16:47 | Operative Report ---
PG Post Operative Report Pre & Post Diagnosis Operation Date: 07/07/25 08:20 Pre-Op Diagnosis: Left Kidney stone Post-Op Diagnosis: Left Kidney stone I identified the patient and participated in the time-out.: Yes Procedure Operation Date: 07/07/25 08:20 Actual Procedures p Cystoscopy, Left Ureteral Stent Placement(Left) - Brett Lance MD Surgeon Brett Lance MD Major Account Representative none Estimated Blood Loss 0 Findings Consistent with Post-Op Diagnosis Specimens none Description of Procedure The patient was identified in the preoperative holding area, appropriate informed consents were reviewed and completed and the patient was transferred to the operative suite. Upon arrival, appropriate antibiotics and anesthesia were administered and the patient was placed in dorsal lithotomy position and prepped and draped in sterile fashion. Begin the case I passed a 21 [place] cystoscope with 30 degree lens. Inspection revealed a healthy appearing urethra prostate and bladder. Ureteral orifices were in orthotopic position. Of note, on preoperative imaging he has a left pelvic kidney. In the obstructing UPJ stone is residing almost in the midline on fluoroscopy. I was able to intubate the left UO with a sensor wire which advanced into the kidney without difficulty and not exhibiting extensive tortuosity. I then placed a 4.8 [place] by 20 cm double-J stent with good curl in the kidney as well as the bladder. There was good drainage through and around the stent. I concluded the case by emptying the bladder. He was reversed of anesthesia and taken to the recovery room in stable condition. He will need ultimate stone treatment, I think he would likely be a candidate for either flexible ureteroscopy or ESWL based on the imaging findings and the positioning of the ureter. I attest to the content of the Intraoperative Record and any orders documented therein. Any exceptions are noted below.
--- NOTE | 2025-07-07 16:57 | Anesthesiology Progress Note ---
Date of Service July 07, 2025 Anesthesia Post Procedure Vital Signs Vital Signs: Temp Pulse Pulse Pulse Resp BP BP 07/07/25 16:55 64 12 106/71 07/07/25 16:48 36.9 C 62 14 115/64 07/07/25 15:30 36.9 C 74 18 126/93 07/07/25 07:19 36.5 C 58 L 16 117/69 07/07/25 07:10 07/07/25 02:00 36.5 C 57 L 16 125/87 07/07/25 01:43 07/07/25 01:34 64 07/07/25 01:33 52 L 10 L 07/07/25 01:27 56 L 17 07/07/25 01:12 67 19 07/07/25 01:00 71 24 07/07/25 00:57 64 15 07/07/25 00:30 66 15 07/07/25 00:27 64 15 07/07/25 00:15 74 14 07/07/25 00:00 140/80 07/06/25 23:39 68 19 07/06/25 23:30 66 18 07/06/25 23:21 76 17 07/06/25 23:03 74 27 H 07/06/25 23:02 124/78 07/06/25 22:57 67 17 07/06/25 22:54 62 17 07/06/25 22:45 69 17 07/06/25 22:33 75 22 124/78 07/06/25 21:42 80 20 133/75 07/06/25 21:35 79 07/06/25 21:08 70 16 07/06/25 20:59 36.6 C 81 18 157/85 H Pulse Ox O2 Del Method O2 Flow Rate 07/07/25 16:55 99 Nasal Cannula 4 07/07/25 16:48 98 Nasal Cannula 4 07/07/25 15:30 97 Room Air 07/07/25 07:19 96 Room Air 07/07/25 07:10 Room Air 07/07/25 02:00 97 Room Air 07/07/25 01:43 Room Air 07/07/25 01:34 07/07/25 01:33 07/07/25 01:27 07/07/25 01:12 07/07/25 01:00 07/07/25 00:57 07/07/25 00:30 07/07/25 00:27 07/07/25 00:15 07/07/25 00:00 07/06/25 23:39 96 07/06/25 23:30 96 07/06/25 23:21 96 07/06/25 23:03 96 07/06/25 23:02 07/06/25 22:57 95 07/06/25 22:54 95 07/06/25 22:45 07/06/25 22:33 96 07/06/25 21:42 97 07/06/25 21:35 07/06/25 21:08 95 Room Air 07/06/25 20:59 98 Room Air Pain Intensity Left Lower Abdomen: Pain Intensity: 1 Left Leg: Pain Intensity: 4 Transfer of Care Handoff Completed per policy Notes Mental Status: alert / awake / arousable Patient Amnestic to Procedure: Yes Nausea / Vomiting: adequately controlled Pain: adequately controlled Airway Patency, RR, SpO2: stable & adequate BP & HR: stable & adequate Hydration State: stable & adequate Anesthetic Complications: no major complications apparent and Pt Satisfied with anesthetic care
[2025-07-07] MEDS ORDERED: CIPROFLOXACIN / D5W 400 MG/200 ML BAG IV ONE (17:00)
[2025-07-08] MEDS: CIPROFLOXACIN / D5W 400 MG/200 ML BAG IV ONE (03:14)
[2025-07-08 03:17] VITALS: O2SAT 96
[2025-07-08 06:33] LABS: Hematocrit (blood only) 38.2 % (42.0-52.0); Hemoglobin 13.6 g/dl (14.0-18.0); Mean Corpuscular Hemoglobin 31.5 pg (25.0-34.0); Mean Corpuscular Volume 88.4 fL (80.0-100.0); Platelet Count 208 K/uL (130-400); RDW Standard Deviation 38.8 fL (36.4-46.3); Red Blood Count 4.32 M/uL (4.70-6.10); White Blood Count 8.42 K/ul (4.8-10.8)
[2025-07-08 07:09] LABS: Anion Gap 7.0 (3-11); Blood Urea Nitrogen 14.0 mg/dl (6-23); Calcium 8.7 mg/dl (8.6-10.3); Carbon Dioxide 26.0 mmol/L (21-32); Chloride 106.0 mmol/L (98-107); Creatinine Clr Calc Pharmacy 86.0 ml/min; Glucose 141.0 mg/dl (70-99(Fasting)); Potassium 4.2 mmol/L (3.5-5.1); Sodium 139.0 mmol/L (136-145)
[2025-07-08] MEDS ORDERED: ONDANSETRON INJ 2 MG/ML 2 ML VIAL IV PRN (07:44)
[2025-07-08 08:06] VITALS: BP 122/69; PULSE 82; RESP 16; TEMP 98.2
--- NOTE | 2025-07-08 08:07 | Fluoroscopy Report ---
FL retrograde includes kub CLINICAL HISTORY: LT CYSTO,RETRO,STENT COMPARISON STUDY: CT 07/06/2025 FLUOROSCOPY TIME: 8.7 seconds FLUOROSCOPY IMAGES: 2 EXPOSURE DOSE: 1.68 mGy FINDINGS: A stent projects over the midline pelvis, likely within the left pelvic kidney. Ill-defined radiodensity within the midpelvis likely correlates with the persistent ureteral calculus.. IMPRESSION: Fluoroscopic assistance as above. ACT 112: Negative or not required by law. Electronically signed by: Kraig Grullon M.D. 07/08/2025 8:05 AM
--- NOTE | 2025-07-08 11:47 | Urology Progress Note ---
Date of Service July 08, 2025 Assessment & Plan (1) Calculus of left ureter: Plan: - Pt POD#1 s/p cystoscopy and left ureteral stent placement - Doing well, progressing as expected - Afebrile, stable vitals - Lab work reviewed - creatinine 0.97, WBC 8.42 - UC pending, UA was not overly suspicious for infection - can follow culture - Tolerating left ureteral stent with minimal bother - Okay to d/c from perspective when medically stable - Recommend d/c with course of Tamsulosin, consider prn Pyridium and oxybutynin for stent management - Expected clinical course reviewed, all questions answered - Will arrange outpatient follow-up with our service - will sign off, please contact our service with any additional questions/concerns Admission and Anticipated Discharge Date Admission Date: July 07, 2025 Subjective Patient seen and examined at bedside this morning. No acute issues overnight. Tolerating stent. Urine has cleared postprocedure. No fever or chills. Patient ready for discharge. Review of Systems Constitutional: as per Subjective / HPI Genitourinary: + as per Subjective / HPI Physical Exam Constitutional: well developed and well nourished; no acute distress Respiratory: normal respiratory effort; no respiratory distress and no labored breathing Gastrointestinal (Abdomen): Inspection/Auscultation: abdomen normal to inspection Musculoskeletal: Head/Neck/Chest: normocephalic Neurologic: moves all extremities and awake Psychiatric: Orientation: alert and oriented x 3 Results & Data Vital Signs (Past 12 Hours) Vital Signs Temp Pulse Resp BP BP Pulse Ox O2 Del Method 07/08/25 08:02 36.8 C 82 16 122/69 96 Room Air 07/08/25 03:15 36.5 C 58 L 18 118/55 L 96 Room Air PG Care Time/CCT Total # of Minutes Spent Total Time Spent with Patient: Total time spent is greater than 50% in coordination of care (as documented) at patient's floor/unit and/or counseling patient: Coding Level of Care Code 48882 SUB INP/OBS CARE 12/06MIN Diagnoses Calculus of left ureter N20.1
--- NOTE | 2025-07-08 11:58 | Discharge Summary ---
Discharge Summary Date of Service July 08, 2025 Principal Dx & Hospital Course #1 = Principal Diagnosis (1) Calculus of left ureter: Assessment and plan below following discussion of case with ED provider and reviewing patient history/pertinent normal/abnormal diagnostic test results. Obstructive uropathy secondary to kidney stone No sepsis for now Incidental finding of right kidney cyst on imaging Hyperglycemia rule out DM Admit to MedSurg Analgesia Strain urine Urology consult RE obstructive uropathy from kidney stone (Patient already evaluated in the ER by provider. N.p.o. status recommended in anticipation of procedure in a.m.) Check hemoglobin A1c DVT prophylaxis. SCDs Re: Gross hematuria Full code Text document was generated using [employer] voice recognition software. It may contain grammatical or spelling errors. Kindly contact undersigned for clarification of any documentation item in question. Notes For Next Care Provider 55 yo with no pmhx presenting for left sided flank pain, found to have obstructing nephrolithiasis on left side, admitted to medicine. On medicine, urology consulted, placed left sided stent with improvement in symptoms. Some pain noted shooting down left leg while sitting, xray unremarkable. On 07/08/2025 per urology and medicine patient medically stable for discharge home. To do: [ ] f/u with urology Incidentals: right renal cortical cyst Medication Changes From Visit -oxycodone prn, pyridium prn, tamulosin, zofran prn Admission HPI Per Admitting Provider History obtained from patient and records. Medical history significant for urolithiasis. Patient experienced achy left-sided flank pain symptoms last night reminiscent of kidney stone attack. Hematuria associated with emesis. Denies chest pain, SOB, fever or chills. 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 External ears normal. No rhinorrhea. Moist mucous membranes. Neck: Supple, full range of motion, no observable masses, No meningeal sign. Lungs: No Respiratory distress. CV: RRR, no edema. Abdomen: Soft, nondistended, No rebound tenderness. MSK: No joint swelling, no redness. Skin: No rashes, petechiae, lesions. Normal color per patient. Neuro: Normal Gait, Grossly intact. Psych: Appropriate for situation. Updated Medication List Medication Instructions Recorded Confirmed Type ondansetron 4 mg disintegrating 4 mg PO Q8H PRN nausea and 07/08/25 Rx tablet vomiting 5 days #14 tabs oxycodone 5 mg tablet 5 mg PO Q4 PRN pain 5 days #20 tabs 07/08/25 Rx phenazopyridine 100 mg tablet 100 mg PO Q8H PRN pain #14 tabs 07/08/25 Rx (Pyridium) tamsulosin 0.4 mg capsule (Flomax) 0.4 mg PO DAILY #14 caps 07/08/25 Rx Hospital Stay Data Consultations 07/07/25 00:03 Consult Urology Stat 07/07/25 00:16 ED Decision to Admit Stat Procedures Performed Operation Date: 07/07/25 08:20 Actual Procedures p Cystoscopy, Left Ureteral Stent Placement(Left) - Brett Lance MD Diagnostic Imagining Performed 07/06/25 21:11 CT abd pelvis IV con only Stat 07/07/25 15:46 FL KUB Routine Pending Results Patient Have Any Pending Studies at Discharge: Yes Discharge Instructions Given to Patient (Per Discharging Provider) Diagnosis: obstructing kidney stone, now after stent placement Treatments: pain control, tamulosin, oxybutinin, pyridium Follow Up: with PCP, urology Incidentals: right renal cortical cyst 1. Please stay hydrated! 2. Please take pain medications as needed. 3. Follow up with PCP and urology. Total Time Total Time Spent Total Time Spent (In Minutes): I spent a total of 35 minutes in direct patient care, including [id number] time with the patient and/or family, reviewing medical records, ordering and reviewing diagnostic tests, and coordinating care with other healthcare providers. This time includes: history taking, physical examination, medical decision making, counseling, ECG interpretation, imaging interpretation, lab interpretation, orders, and education, excluding time spent in the performance of separately billed services.
== END 2025-07-08 12:33 | disposition home or self-care (01) | DRG 661 ==
LOC: ED 20:54 → INTOOBSV 07-07 00:54 → 3E 07-07 00:54 → SUATTDRO 07-07 00:54 → 3E 07-07 01:43